=== PATIENT | male | born 1970 | race Caucasian/White ===

== ENCOUNTER 2016-09-19 03:39 | Emergency (ER) | payer OTHER ==
[2016-09-19] VITALS (9 sets, daily range): BP systolic 79–190; BP diastolic 40–113; PULSE 81–116; RESP 16–22; O2SAT 96–100
[2016-09-19] MEDS ORDERED: EPINEPHrine 0.1 mg/mL 10 mL Syringe ONE (03:40)
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
--- NOTE | 2016-09-19 04:35 | ABG ---
DateTimeAnalyzed 04:28:06 -_ pH ____7.350 - 7.350 7.450 pCO2 ___22.6__ -mmHg 35.0 45.0 HCO3- ___12.4__ -mmol/L 22.0 26.0 ABE __-11.8__ -mmol/L -2.0 2.0 tHb ___13.4__ -g/dL 12.0 18.0 O2Hb ___81.3__ -% 95.0 COHb ___19.6__ -% 1.5 MetHb ____0.1__ -% 0.4 1.5 FIO2 ___21.0__ -% PEEP ____5.0__ -cmH2O Set_RR 20 -b/min Vt __500.0__ -L Drawn By DR DE LA ROSA - Date/Time Notified____ 04:34:00 -_ Spontaneous_RR 30 -b/min Oxygen Device 1 VENTILATOR - Notified By MD - Notified Whom DR DE LA ROSA - K+ ____3.1__ -mmol/L OrderingPhysicianInitials CR - Eliazar test N/A -
[2016-09-19] MEDS ORDERED: 0.9% Sodium Chloride 1,000 ML IV ONE (04:49)
[2016-09-19 05:42] LABS: BASOPHILS % (AUTO) 0.7 % (0-3); EOSINOPHILS % (AUTO) 0.8 % (0-5); MONOCYTES % (AUTO) 8.9 % (4-12); Mean Corpuscular Hemoglobin 34.2 pg (27.0-35.0); Mean Corpuscular Volume 98.1 fL (81-100); Platelet Count 266 bil/L (150-400)
[2016-09-19 06:37] LABS: APPEARANCE,URINE CLEAR (CLEAR,HAZY); COLOR,URINE YELLOW (YELLOW); OCCULT BLOOD,URINE NEGATIVE (NEGATIVE); PH,URINE 5.5 (5.0-8.0); UROBILINOGEN,URINE NORMAL (NORMAL)
--- NOTE | 2016-09-19 06:51 | DRSVH ---
PROCEDURE: CT BRAIN WITHOUT CONTRAST ([id number]) INDICATIONS: arrest/ROSC carbon monoxide poisoning TECHNIQUE: Noncontrast 4.5 mm thick angled axial sections acquired from the foramen magnum to the vertex, with c oronal reformats. COMPARISON: None. FINDINGS: Image quality: Excellent. CSF spaces: Basal cisterns are patent. No extra-axial fluid collections. Ventricles are normal in size and shape. Brain: No midline shift. No intracranial masses or hemorrhage. [place]-white matter interface is poor ly seen in the temporal lobes and left frontal lobe. Skull and face: Calvarium and visualized facial bones are intact, without suspicious lesions. Sinuses: Visualized sinuses and mastoids are clear. IMPRESSION: 1. Loss of distinct wellington-white matter interface in the temporal lobes and left frontal lobe may repre sent edema given the patient's reported history of carbon monoxide poisoning. Motion artifact is also possible. Recommend a brain MRI with and without contrast if there is clinical evidence of cerebral pathology. 2. There are no discrepancies with the preliminary report. Dictated by: Rodriguez Beltre M.D. on 09/19/2016 at 6:47 Approved by: Rodriguez Beltre M.D. on 09/19/2016 at 6:50
--- NOTE | 2016-09-19 09:26 | DRSVH ---
PROCEDURE: X-RAY CHEST ONE VIEW, PORTABLE ([id number]) INDICATIONS: CARDIAC ARREST, CENTRAL LINE TECHNIQUE: One view of the chest was acquired. COMPARISON: None. FINDINGS: Surgical changes and devices: Temporary transcutaneous pacer lead present projected over the left upp er heart. Right central line has been placed with the tip projected over the midline at the level of the aortic arch. Defibrillator pad. ET tube with tip 6 CM above the erick. Lungs and pleura: Small left pleural effusion is present in the interstitium is prominent. No pneumo thorax. Mediastinum: Mediastinal contours appear normal. Heart size is prominent for technique. Bones and chest wall: No suspicious bony lesions. Overlying soft tissues appear unremarkable. IMPRESSION: 1. Right CVL has been placed tip projected over the midline at the level of the aortic arch. Arteria l line placement cannot be excluded and clinical correlation recommended. 2. Left pleural effusion and interstitial opacities are present suspicious for developing pulmonary e esthela. Dictated by: Yossi Gaytan A Interpreted: Rodriguez Beltre MD on 09/19/2016 at 9:23 Transcribed by: GENESIS on 09/19/2016 at 9:25 Approved by: Rodriguez Beltre M.D. on 09/19/2016 at 9:51
--- NOTE | 2016-09-19 09:27 | DRSVH ---
PROCEDURE: X-RAY CHEST ONE VIEW, PORTABLE ([id number]) INDICATIONS: CENTRAL LINE PLACEMENT TECHNIQUE: One view of the chest was acquired. COMPARISON: [facility], CR, XR CHEST 1VW (PORTABLE), 09/19/2016, 3:48. FINDINGS: Surgical changes and devices: Right IJ CVL redemonstrated with tip now projected over the mid superio r vena cava. Stable positioning of left transcutaneous pacer lead. Endotracheal tube tip projected 7.1 cm above the erick. Left upper quadrant surgical clips. Lungs and pleura: Interstitium remains prominent and small left pleural effusion is present. Mediastinum: Mediastinal contours appear normal. Heart size is prominent. Bones and chest wall: No suspicious bony lesions. Overlying soft tissues appear unremarkable. IMPRESSION: 1. Support lines and tubes as above. 2. Interstitial opacities redemonstrated suspicious for mild edema. Dictated by: Yossi Gaytan Jones Interpreted: Rodriguez Beltre MD on 09/19/2016 at 9:25 Transcribed by: GENESIS on 09/19/2016 at 9:26 Approved by: Rodriguez Beltre M.D. on 09/19/2016 at 9:52
== END 2016-09-19 05:39 | disposition short-term general hospital (02) ==
LOC: EDUNIT# 03:39 → SED 03:39
DX: T58.02XA Toxic effect of carbon monoxide from motor vehicle exhaust, intentional self-harm, initial encounter (principal); X58.XXXA Exposure to other specified factors, initial encounter; Y92.810 Car as the place of occurrence of the external cause; Y93.89 Activity, other specified; Y99.8 Other external cause status; I46.9 Cardiac arrest, cause unspecified; F32.9 Major depressive disorder, single episode, unspecified; I10 Essential (primary) hypertension; F17.200 Nicotine dependence, unspecified, uncomplicated; Z91.5 Personal history of self-harm; Z90.81 Acquired absence of spleen; Z88.1 Allergy status to other antibiotic agents; Z88.8 Allergy status to other drugs, medicaments and biological substances
CPT/HCPCS: 36415; 36556; 36620; 51702; 70450; 71010; 80053; 81000; 82375; 82803; 83605; 83735; 85025; 85610; 85730; 87070; 87205; 93005; 94002; 94664; 94799; 99291; 99292; G0480; J0171